=== PATIENT | male | born 1960 | race Two or more races ===

== ENCOUNTER 2020-03-24 17:07 | Emergency (ER) | payer MEDICAID ==
[~2020-03-24] VITALS: Ht 167.6 cm; Wt 86.4 kg
[2020-03-24] MEDS ORDERED: BLOOD PRESSURE MED PO (17:13)
[2020-03-24] MEDS ORDERED: ACETAMINOPHEN 500 MG TABLET PO ONE (17:15)
[2020-03-24] MEDS ORDERED: KETOROLAC TROMETHAMINE 30 MG/ML VIAL IVP ONE (17:15)
[2020-03-24] MEDS ORDERED: MORPHINE SULFATE 2 MG/ML SYRINGE IVP ONE (17:15)
[2020-03-24] MEDS ORDERED: MIDAZOLAM HCL 2 MG/2 ML VIAL IVP ONE (18:00)
[2020-03-24 20:11] VITALS: BP 158/101
== END 2020-03-24 20:19 | disposition home or self-care (01) ==
LOC: EMS 17:07
DX: S53.004A Unspecified dislocation of right radial head, initial encounter (principal); F17.210 Nicotine dependence, cigarettes, uncomplicated; I10 Essential (primary) hypertension; W11.XXXA Fall on and from ladder, initial encounter; Y93.89 Activity, other specified; Y92.89 Other specified places as the place of occurrence of the external cause; Y99.8 Other external cause status
CPT/HCPCS: 24600; 73080; 99152; 99285; J1885; J2250; J2270